=== PATIENT | female | born 1985 | race African-American/Black ===

== ENCOUNTER 2017-01-28 17:35 | Emergency (ER) | payer SELFPAY ==
[2017-01-28] MEDS ORDERED: NAPROXEN 250 MG TABLET PO ONE (20:16)
--- NOTE | 2017-01-28 20:18 | ER Document Report ---
ED Medical Screen (RME) - General Chief Complaint: Leg Pain Stated Complaint: RIGHT LEG PAIN Notes: The patient is a 31-year-old female, past medical history right lower extremity DVT last year (finished 3 months of anticoagulation), presents with 3 days of right lower extremity leg pain and mild right knee swelling after she played kickball. She woke up with the pain and has not taken anything to help. She denies numbness, tingling, injury, chest pain, shortness of breath or difficulty walking. I have greeted and performed a rapid initial assessment of this patient. A comprehensive ED assessment and evaluation of the patient, analysis of test results and completion of the medical decision making process will be conducted by additional ED providers. TRAVEL OUTSIDE OF THE [place] IN LAST 30 DAYS: No - Related Data Allergies/Adverse Reactions: No Known Allergies Allergy (Unverified 01/28/17 17:48) Past Medical History - General Information source: Patient Renal/ Medical History: Denies: Hx Peritoneal Dialysis Physical Exam - Vital signs Vitals: Temp Pulse Resp BP Pulse Ox 98.2 F 91 16 142/88 H 100 01/28/17 17:47 01/28/17 17:47 01/28/17 17:47 01/28/17 17:47 01/28/17 17:47 Course - Vital Signs Vital signs: Temp Pulse Resp BP Pulse Ox 98.2 F 91 16 142/88 H 100 01/28/17 17:47 01/28/17 17:47 01/28/17 17:47 01/28/17 17:47 01/28/17 17:47
--- NOTE | 2017-01-28 22:51 | ER Document Report ---
ED Extremity Problem, Lower - General Chief Complaint: Leg Pain Stated Complaint: RIGHT LEG PAIN Notes: Patient is a 31-year-old female with a past medical history of right lower extremity DVT last year, recently finished 3 months of anticoagulation, that comes emergency department for chief complaint of pain in her right leg. Symptoms started about 3 days ago, she states she awoke with the incision of tightness in her leg, she states that she later that day played kickball, she states 2 days later she played kickball again, she states that she has taken a couple of 200 mg doses of ibuprofen without any change in her symptoms. She denies specific injury, numbness, tingling, shortness of breath, chest pain, or difficulty with ambulation. She denies smoking, control, recent travel, recent surgery, she states the DVT occurred after long-distance travel. TRAVEL OUTSIDE OF THE [place] IN LAST 30 DAYS: No - Related Data Allergies/Adverse Reactions: No Known Allergies Allergy (Unverified 01/28/17 17:48) Past Medical History - General Information source: Patient - Social History Smoking Status: Never Smoker Frequency of alcohol use: None Drug Abuse: None Lives with: Family Family History: Reviewed & Not Pertinent - Past Medical History Cardiac Medical History: Reports: Hx DVT, Hx Hypertension Renal/ Medical History: Denies: Hx Peritoneal Dialysis Surgical Hx: Negative - Immunizations Hx Diphtheria, Pertussis, Tetanus Vaccination: Yes Review of Systems - Review of Systems Constitutional: No symptoms reported EENT: No symptoms reported Cardiovascular: No symptoms reported Respiratory: No symptoms reported Gastrointestinal: No symptoms reported Genitourinary: No symptoms reported Female Genitourinary: No symptoms reported Musculoskeletal: See HPI Skin: No symptoms reported Hematologic/Lymphatic: No symptoms reported Neurological/Psychological: No symptoms reported Physical Exam - Vital signs Vitals: Temp Pulse Resp BP Pulse Ox 98.2 F 91 16 142/88 H 100 01/28/17 17:47 01/28/17 17:47 01/28/17 17:47 01/28/17 17:47 01/28/17 17:47 Interpretation: Normal - General General appearance: Appears well, Alert - HEENT Head: Normocephalic, Atraumatic Eyes: Normal Pupils: PERRL - Respiratory Respiratory status: No respiratory distress Chest status: Nontender Breath sounds: Normal Chest palpation: Normal - Cardiovascular Rhythm: Regular Heart sounds: Normal auscultation Murmur: No - Abdominal Inspection: Normal Distension: No distension Bowel sounds: Normal Tenderness: Nontender Organomegaly: No organomegaly - Back Back: Normal, Nontender - Extremities General upper extremity: Normal inspection, Nontender, Normal ROM, Normal strength General lower extremity: Normal inspection, Tender - There is mild tenderness along the right knee over the lateral aspect of the knee, range of motion intact , no effusion noted, no erythema or swelling noted, normal lower extremity exam otherwise.. No: Edema, Jumana's sign - Neurological Neuro grossly intact: Yes Cognition: Normal Orientation: AAOx4 Dunlap Coma Scale Eye Opening: Spontaneous Gertrudis Coma Scale Verbal: Oriented Gertrudis Coma Scale Motor: Obeys Commands Dunlap Coma Scale Total: 15 Speech: Normal Motor strength normal: LUE, RUE, LLE, RLE Sensory: Normal - Psychological Associated symptoms: Normal affect, Normal mood - Skin Skin Temperature: Warm Skin Moisture: Dry Skin Color: Normal Course - Re-evaluation Re-evalutation: Patient with mild tenderness over the lateral collateral ligament area of the right knee, normal examination otherwise, no noted swelling, erythema, no significant tenderness of the calf, negative Homans sign, no lower extremity swelling. Doppler is negative for DVT. Appears to be musculoskeletal in nature , providing with anti-inflammatory, gave recommendations for treatment of this, patient states she is currently on her feet and needs a work note, she'll be provided with this, discussed primary care follow-up, discussed return precautions, patient states understanding and agreement. - Vital Signs Vital signs: Temp Pulse Resp BP Pulse Ox 98.5 F 85 18 132/62 H 100 01/28/17 22:58 01/28/17 22:58 01/28/17 22:58 01/28/17 22:58 01/28/17 22:58 Discharge - Discharge Clinical Impression: Right leg pain Right knee pain Qualifiers: Chronicity: acute Qualified Code(s): M25.561 - Pain in right knee Condition: Stable Disposition: HOME, SELF-CARE Additional Instructions: No evidence of blood clot is seen on the ultrasound. This appears to not a musculoskeletal problem, appears to be the lateral collateral ligament of the knee that was injured. Ice her knee and leg, elevate, take naproxen as directed. If symptoms continue follow-up with either primary care or the orthopedics referral. Return immediately for any concerning or worsening symptoms including swelling or redness to the area. Prescriptions: Naproxen 500 mg PO BID #20 tablet Forms: Return to Work, Elevated Blood Pressure
[2017-01-28 23:05] VITALS: BP 132/62
== END 2017-01-28 23:04 | disposition home or self-care (01) ==
LOC: ER 17:35
DX: M79.604 Pain in right leg (principal); M25.561 Pain in right knee; Z79.01 Long term (current) use of anticoagulants; Z79.899 Other long term (current) drug therapy
CPT/HCPCS: 93971; 99283

== ENCOUNTER 2018-02-12 09:36 | Emergency (ER) | payer SELFPAY ==
[2018-02-12] MEDS ORDERED: PSEUDOEPHEDRINE HCL 30 MG TABLET PO ONE (10:07)
[2018-02-12] MEDS ORDERED: IBUPROFEN 800 MG TABLET PO ONE (10:07)
--- NOTE | 2018-02-12 10:08 | ER Document Report ---
HPI - HPI Pain Level: 4 Context: Patient is a 32-year-old female presents emergency room with a chief complaint of URI symptoms. Patient states that started yesterday. She admits to sinus congestion, ear pressure, sore throat, nonproductive cough, body aches. Admits to subjective low-grade fever at home. States he did not take anything for her symptoms. Did not receive a flu vaccine this year. Works in a daycare. Otherwise healthy female. - CONSTITUTIONAL Constitutional: REPORTS: Fever, Chills - last night - EENT EENT: REPORTS: Sore Throat, Ear Pain. DENIES: Eye problems - NEURO Neurology: REPORTS: Headache. DENIES: Weakness, Vision blurred, Dizzinesss / Vertigo - CARDIOVASCULAR Cardiovascular: DENIES: Chest pain - RESPIRATORY Respiratory: REPORTS: Trouble Breathing - if talk to much, Coughing - GASTROINTESTINAL Gastrointestinal: DENIES: Abdominal Pain, Black / Bloody Stools - URINARY Urinary: DENIES: Dysuria, Urgency, Frequency - MUSCULOSKELETAL Musculoskeletal: DENIES: Extremity pain Past Medical History - Social History Smoking Status: Unknown if Ever Smoked Chew tobacco use (# tins/day): No Frequency of alcohol use: None Drug Abuse: None Family History: Reviewed & Not Pertinent Patient has suicidal ideation: No Patient has homicidal ideation: No - Past Medical History Cardiac Medical History: Reports: Hx DVT, Hx Hypertension Renal/ Medical History: Denies: Hx Peritoneal Dialysis Past Surgical History: Reports: Hx Breast Surgery - reduction, Hx Oral Surgery - wisdom teeth. - Immunizations Hx Diphtheria, Pertussis, Tetanus Vaccination: Yes Vertical Provider Document - CONSTITUTIONAL Agree With Documented VS: Yes Notes: PHYSICAL EXAM GENERAL: Alert, interacts well. HEAD: Normocephalic, atraumatic. EYES: Pupils equal, round, and reactive to light. Extraocular movements intact. ENT: Oral mucosa moist, tongue midline. NECK: Full range of motion. Supple. Trachea midline. LUNGS: Clear to auscultation bilaterally, no wheezes, rales, or rhonchi. No respiratory distress. HEART: Regular rate and rhythm. No murmurs, gallops, or rubs. ABDOMEN: Soft, nondistended, nontender. No guarding, rebound, or rigidity.. Bowel sounds present in all 4 quadrants. EXTREMITIES: Moves all 4 extremities spontaneously. No edema, radial and dorsalis pedis pulses 2/4 bilaterally. No cyanosis. NEUROLOGICAL: Alert and oriented x4. Normal speech. PSYCH: Normal affect, normal mood. SKIN: Warm, dry, normal turgor. No rashes or lesions noted. - INFECTION CONTROL TRAVEL OUTSIDE OF THE [place] IN LAST 30 DAYS: No Course - Re-evaluation Re-evalutation: 02/12/18 10:46 Presentation is most consistent with a viral upper respiratory infection. Patient is overall well appearance, vitals within normal limits, well-hydrated. Patient denies any headache, neck pain, and has no evidence of meningismus on examination. Lungs are clear bilaterally. No evidence of respiratory distress. Based on clinical exam and history, I do not suspect an acute pneumonia, meningitis, strep pharyngitis, or an acute encephalitis. No laboratory or imaging testing is indicated at this time. Will discharge patient with return precautions and followup recommendations. They are in agreement this plan have verbalized understanding return precautions. - Vital Signs Vital signs: Temp Pulse Resp BP Pulse Ox 98.6 F 115 H 20 126/77 H 100 02/12/18 09:45 02/12/18 09:45 02/12/18 09:45 02/12/18 09:45 02/12/18 09:45 Discharge - Discharge Clinical Impression: URI (upper respiratory infection) Qualifiers: URI type: unspecified viral URI Qualified Code(s): J06.9 - Acute upper respiratory infection, unspecified Condition: Good Disposition: HOME, SELF-CARE Additional Instructions: Your symptoms are most likely due to a viral infection it should resolve over the next 7-14 days. You should take [id number] guanfacine per bottle instructions to help thin the mucus. For nasal congestion: I would recommend that you get [id number] oxymetazoline also known is afrin. Use only per bottle instructions and be sure to never use this for more than 3 days if you can develop severe rebound congestion. You may also use tylenol or ibuprofen as needed for aches and thorat discomfort. Please be sure to drink plenty of fluids and get rest. Return to the emergency department he began having difficulty breathing, chest pain, persistent vomiting, or any other symptoms that are concerning to you. Forms: Return to Work
[2018-02-12 11:42] VITALS: BP 136/73
== END 2018-02-12 11:33 | disposition home or self-care (01) ==
LOC: ER 09:36
DX: J06.9 Acute upper respiratory infection, unspecified (principal); R50.9 Fever, unspecified; R51 Headache; I10 Essential (primary) hypertension; Z86.718 Personal history of other venous thrombosis and embolism
CPT/HCPCS: 87070; 87077; 87880; 99283